=== PATIENT | male | born 1985 | race Caucasian/White ===

== ENCOUNTER 2024-03-03 03:29 | Emergency (ER) | payer OTHER, SELFPAY ==
[2024-03-03 03:35] VITALS: BP 128/86
--- NOTE | 2024-03-03 04:10 | ED.GENMED ---
History of Present Illness
General
Chief Complaint: Abdominal Pain
Time Seen by Provider: 03/03/24 04:10
History of Present Illness
History of Present Illness:
TIME OF INITIAL ENCOUNTER: 4:15 AM
HPI:
Approximately 48 hours ago, the patient started having abdominal discomfort more so on the left side. His pain is now diffuse. He has had similar less severe symptoms in the past but describes the symptoms tonight is rather significant. He has
associated weakness. He does not report any loss of appetite. He has had no nausea or vomiting or diarrhea.
EXAM:
GENERAL: Well appearing in no distress
HEENT: Moist oral mucosa
CARDIOVASCULAR: No murmurs, borderline tachycardic heart rate, regular rhythm, No chest wall tenderness
PULMONARY: No respiratory distress, breath sounds are clear and equal
ABDOMEN: Soft with no peritoneal signs, mild diffuse abdominal tenderness
NEUROLOGIC: Excellent strength all extremities, no coordination deficits
PSYCHIATRIC: Appropriate mental status, normal insight and judgement
EXTREMITIES: Nontender, no edema, moves all extremities equally
SKIN: No rash, no lesions
NUMBER AND COMPLEXITY OF PROBLEMS ADDRESSED AT THE ENCOUNTER
� Chronic conditions affecting care: Denies past medical history
� Acute Exacerbation and/or Progression of Chronic Illness: This is an acute problem
� Differential Diagnosis includes: Mesenteric adenitis, viral syndrome, diverticulitis, appendicitis, pancreatitis
AMOUNT AND/OR COMPLEXITY OF DATA TO BE REVIEWED AND ANALYZED
� I performed an independent evaluation of and my interpretation is:
EKG:
CT: CT imaging personally reviewed and I agree with radiologist interpretation that there is acute sigmoid diverticulitis with no evidence of complication
X-rays:
Laboratory Studies: White count 15.3, hemoglobin normal, chemistries unremarkable
Other:
� Review of other/old records: No old records available for review in [facility]
� Clinical information was obtained by an independent historian: I spoke to at bedside
� Prescriptions/Medications Considered but not given:
� Further testing considered but not performed:
RISK OF COMPLICATIONS AND/OR MORBIDITY OR MORTALITY OF PATIENT MANAGEMENT
� Social determinants of health affecting care: Lives at home
� Discussion with other providers:
� Escalation of care including admission/observation vs risk of discharge considered: Leukocytosis noted. The patient was given IV fluids as he was initially tachycardic. CT imaging obtained.
ANY OTHER UPDATES:
5:30 AM: I reassessed patient. CT imaging shows acute diverticulitis. However he is well-appearing with only minimal findings on exam. Will start antibiotics as outpatient and he is to follow-up with PMD and Jan him contact information for
Dr. Rojas
Phy Exam
Physical Exam
Physical Exam:
See HPI
Course
Orders/Labs/Results
Orders:
Orders
03/03/24 03:40
Complete Blood Count/With Diff Urgent
Comprehensive Metabolic Panel Urgent
Lipase Urgent
03/03/24 04:15
CT Abd/pelvis W Iv Cont Urgent
Comment:
Reason For Exam: diffuse abd pain
03/03/24 04:16
0.9% Sodium Chloride 1000 ml [Nss] 1,000 ml IV BOLUS
03/03/24 05:33
Amoxicillin 875 mg/Clav 125 mg [Augmentin 875 mg/125 mg] 1 tablet PO NOW STA
Abnormal Lab Results
03/03/24
03:40
WBC 15.3 H 10^3/uL
(4.8-10.8)
Abs Immat Gran (auto) 0.1 H 10^3/uL
(0-0.05)
Absolute Neuts (auto) 11.3 H 10^3/uL
(1.4-6.5)
Absolute Monos (auto) 1.7 H 10^3/uL
(0.1-0.6)
Lymphocytes % 13.6 L %
(20.5-51.1)
Monocytes % 11.0 H %
(1.7-9.3)
Glucose 121 H mg/dl
(70-99)
Total Bilirubin 1.9 H mg/dl
(0.2-1.3)
03/03/24 03:40
03/03/24 03:40
Vital Signs
Initial and Last Documented VS:
Initial Vital Signs
Temp Pulse BP Pulse Ox
36.9 C 129 128/86 96
03/03/24 03:35 03/03/24 03:35 03/03/24 03:35 03/03/24 03:35
Last Documented Vital Signs
Temp Pulse BP Pulse Ox
36.9 C 129 128/86 96
03/03/24 03:35 03/03/24 03:35 03/03/24 03:35 03/03/24 03:35
*Critical Care Note
Total Time (30-74mins, 75-104mins- exclusive of procedures): Not Applicable
ED Attending Note
-
Portions of this chart may have been created with voice recognition software.� Occasional wrong word or��sound alike� substitutions may have occurred due to the inherent limitations of voice recognition software.
Discharge Plan
Departure
Patient Disposition: Home (Routine Discharge)
Date of Disposition: 03/03/24
Time of Disposition: 05:33
Patient with high blood pressure during this ER visit?: Yes
Discharge Problem:
Diverticulitis
Instructions: Diverticulitis (DC), Abdominal Pain
Prescriptions:
New
amoxicillin-pot clavulanate 875-125 mg tablet
1 tab PO BID Qty: 14 0RF
Referrals:
Steve Livingston DO [Family Provider] -
Renee Pittman MD [Active] - Follow up in 10 days
Activity Restrictions/Additional Instructions:
I sent a prescription for Augmentin to your pharmacy. Return here if worse. I have given you the contact information for local GI doctor to follow-up with.
Interventions
Interventions:
*Neglect/Abuse Screening Last Done: 03/03/24 03:32
ED- Fall Risk Assessment Last Done: 03/03/24 04:45
*ED COVID-19 Vaccine History Last Done: 03/03/24 03:30
NS-Ckzdmu-Bjinohvuhb Assessment Last Done: 03/03/24 04:45
Discharge Date and Time
Print Language: KISWAHILI
[2024-03-03 04:27] LABS: % Basophils 0.3 % (0-2); % Eosinophils 0.3 % (0-6); % Immature Granulocytes 0.5 % (0-0.5); % Lymphocytes 13.6 % (20.5-51.1); % Neutrophils 74.3 % (42.2-75.2); Absolute Basophils 0.1 10^3/uL (0-0.2); Absolute Immature Granulocytes 0.1 10^3/uL (0-0.05); Absolute Lymphocytes 2.1 10^3/uL (1.2-3.4); Absolute Monocytes 1.7 10^3/uL (0.1-0.6); Absolute Neutrophils 11.3 10^3/uL (1.4-6.5); Hemoglobin 14.3 g/dL (13.0-18.0); Mean Corp Hgb Conc. 34.9 g/dL (33.0-37.0); Mean Corpuscular Hgb 29.1 pg (27.0-31.0); Mean Corpuscular Volume 83.3 fL (80.0-94.0); Mean Platelet Volume 9.9 fL (7.4-10.4); Nucleated Red Blood Cells % 0 % (-); Platelet Count 253 10^3/uL (130-400); Red Blood Cell Count 4.92 10^6/uL (4.70-6.10); Red Cell Dist. Width 12.5 % (11.5-14.5); White Blood Cell Count 15.3 10^3/uL (4.8-10.8)
[2024-03-03] MEDS: NSS 1000 IV (04:28)
[2024-03-03 04:49] LABS: ALT (SGPT) 32 U/L (0-50); AST (SGOT) 24 U/L (17-59); Alkaline Phosphatase 65 U/L (38-126); Blood Urea Nitrogen 14 mg/dl (9-20); Calcium 9.7 mg/dl (8.4-10.2); Carbon Dioxide 26 mmol/L (22-30); Chloride 98 mmol/L (98-107); Glucose 121 mg/dl (70-99); Lipase 91 U/L (23-300); Potassium 3.8 mmol/L (3.5-5.1); Sodium 137 mmol/L (135-145); Total Bilirubin 1.9 mg/dl (0.2-1.3); Total Protein 7.6 g/dl (6.3-8.2); eGFR > 60.00
[2024-03-03] MEDS: AUGMENTIN 875 MG/125 MG 1 TABLET PO (05:43)
[2024-03-03 05:54] VITALS: BP 119/69
== END 2024-03-03 05:56 | disposition home or self-care (01) ==
LOC: EMR 03:29
PROVIDERS: EMERGENCY PHYSICIAN Emergency Medicine; FAMILY PHYSICIAN Family Medicine
DX: K57.32 Diverticulitis of large intestine without perforation or abscess without bleeding (principal)
CPT/HCPCS: 99284; 96360; 74177; 80053; 83690; 85025; Q9967

== ENCOUNTER 2024-08-26 21:28 | Emergency (ER) | payer OTHER, SELFPAY ==
[2024-08-26 21:35] VITALS: BP 129/82
[2024-08-26 22:14] LABS: COVID-19 Antigen Negative (Negative)
[2024-08-27 00:07] LABS: % Basophils 0.4 % (0-2); % Eosinophils 0.4 % (0-6); % Immature Granulocytes 0.1 % (0-0.5); % Lymphocytes 10.8 % (20.5-51.1); % Monocytes 8.6 % (1.7-9.3); % Neutrophils 79.7 % (42.2-75.2); Absolute Lymphocytes 0.9 10^3/uL (1.2-3.4); Absolute Monocytes 0.7 10^3/uL (0.1-0.6); Absolute Neutrophils 6.7 10^3/uL (1.4-6.5); Hematocrit 36.7 % (39.0-52.0); Mean Corp Hgb Conc. 35.4 g/dL (33.0-37.0); Mean Corpuscular Volume 81.7 fL (80.0-94.0); Mean Platelet Volume 9.5 fL (7.4-10.4); Nucleated Red Blood Cells % 0 % (-); Platelet Count 223 10^3/uL (130-400); Red Blood Cell Count 4.49 10^6/uL (4.70-6.10); Red Cell Dist. Width 12.1 % (11.5-14.5); White Blood Cell Count 8.5 10^3/uL (4.8-10.8)
[2024-08-27 00:21] LABS: ALT (SGPT) 32 U/L (0-50); AST (SGOT) 26 U/L (17-59); Albumin 4.5 g/dl (3.5-5.0); Alkaline Phosphatase 65 U/L (38-126); Blood Urea Nitrogen 10 mg/dl (9-20); Calcium 9.2 mg/dl (8.4-10.2); Carbon Dioxide 25 mmol/L (22-30); Chloride 103 mmol/L (98-107); Glucose 121 mg/dl (70-99); Potassium 3.9 mmol/L (3.5-5.1); Sodium 137 mmol/L (135-145); Total Bilirubin 0.9 mg/dl (0.2-1.3); Total Protein 7.1 g/dl (6.3-8.2); eGFR > 60.00
[2024-08-27] MEDS: NSS 1000 IV (01:18)
[2024-08-27] MEDS: TORADOL 15 MG IV (01:19)
[2024-08-27 02:04] VITALS: BP 122/76
[2024-08-27] MEDS: TYLENOL 1000 MG PO (02:05)
[2024-08-27 02:29] LABS: Monotest Positive (Negative)
[2024-08-27 03:33] VITALS: BP 99/70
--- NOTE | 2024-08-27 07:30 | ED.GENMED ---
History of Present Illness
General
Chief Complaint: Headache
Source: patient
Exam Limitations: none
Time Seen by Provider: 08/27/24 01:28
Nursing documentation reviewed up to this point in time: agreed with
History of Present Illness
History of Present Illness:
39-year-old male with no reported chronic medical issues presents for evaluation of multiple complaints. Patient reports that he has been feeling unwell for the past few days. He says he has had fever with a Tmax of 102 �F. He says he is been
having headache, myalgias. He says he has been having sore throat, congestion. Mild cough. No nausea, vomiting, diarrhea. No chest pain or abdominal pain. No shortness of breath. He has had a rash that she describes as red splotches on the
back, hands. He has a red spot on his toes�triage note mentions swelling and joint pain in the toes but actually he just has one of these red spots on the toe. The rash is not pruritic or painful. No oral ulcerations. No known sick contacts. No
recent travel. No known bug bites/tick bites.
Review of Systems
Review of Systems
All Other Systems: ROS reviewed and negative except as documented in HPI and ROS
Constitutional: Reports fever, fatigue and chills
EENT: Reports sore throat and runny nose
Respiratory: Reports cough; Denies trouble breathing
Cardiac: Denies chest pain
ABD/GI: Denies abdominal pain, nausea, vomiting or diarrhea
: Denies flank pain
Musculoskeletal: Reports muscle pain; Denies back pain
Neurological: Reports headache
Phy Exam
Physical Exam
Physical Exam:
General: Awake, alert, oriented x3; no acute distress
Head: Normocephalic, atraumatic
Eyes: Conjunctiva normal, sclera anicteric
Throat: Airway intact, he does have erythema of the oropharynx but no tonsillar enlargement or exudate
Neck: Trachea midline, supple without meningismus
Lungs: Clear to auscultation bilaterally, no wheezing, rales, rhonchi
Heart: Tachycardia with regular rhythm, no murmurs, gallops, or rubs
Abd: Soft, non distended, nontender
Neuro: No gross deficits
Skin: Patient has a few small erythematous macules not raised, not blanching, no excoriation�noted on the back, arms, larger spot on the dorsum of the right foot extending to the 3rd and 4th toe
Extremities: No joint swelling, no pain on range of motion of the large joints of the upper or lower extremities�with attention to his toes he has no swelling of the joints in the toes and moves all the toes comfortably without pain including in the
right foot in the area of concern for rash; no edema in extremities, equal pulses in all extremities
Scores
Heart Failure Risk
Heart Failure Risk Score: Not Applicable
Heart Score for Chest Pain Patients
STEMI patient?: Not applicable
Withdrawal Assessment of Alcohol
Withdrawal Assessment Completed?: Not applicable
Sepsis
Sepsis Screening
Sepsis Assessment: Sepsis Ruled Out
Sepsis Screen
Sepsis Screen: Sepsis Ruled Out
Date: 08/27/24
Time: 07:53
Course
Orders/Labs/Results
Orders:
Orders
08/26/24 21:48
COVID-19 Antigen Urgent
Source: Nasal Swab
Monotest Urgent
Comment: ADD ON
Influenza A+B Rapid Molecular Urgent
DIANE Source: Nasal Swab
Specimen Description:
08/26/24 23:59
Complete Blood Count/With Diff Urgent
Comprehensive Metabolic Panel Urgent
08/27/24 00:00
Add On- LAB Urgent
Tests Added?: lyme
08/27/24 01:15
Ketorolac [Toradol] 15 mg .ROUTE .STK-MED ONE
08/27/24 01:18
0.9% Sodium Chloride 1000 ml [Nss] 1,000 ml IV BOLUS
08/27/24 01:19
Ketorolac [Toradol] 15 mg IV NOW STA
08/27/24 01:56
Acetaminophen [Tylenol] 1,000 mg PO NOW STA
08/27/24 01:57
CT Head W/o Iv Contrast Urgent
Comment:
Reason For Exam: worsening headache
08/27/24 02:02
Tho La Spotted Fever IgG&IgM [S] Urgent
Babesia Smear [Blood Parasites] Urgent
DIANE Source: Blood/Venous
Specimen Description:
08/27/24 23:59
Lyme Progressive Urgent
Comment: ADD ON
Abnormal Lab Results
08/26/24 08/26/24
21:48 23:59
RBC 4.49 L 10^6/uL
(4.70-6.10)
Hct 36.7 L %
(39.0-52.0)
Absolute Neuts (auto) 6.7 H 10^3/uL
(1.4-6.5)
Absolute Lymphs (auto) 0.9 L 10^3/uL
(1.2-3.4)
Absolute Monos (auto) 0.7 H 10^3/uL
(0.1-0.6)
Neutrophils % 79.7 H %
(42.2-75.2)
Lymphocytes % 10.8 L %
(20.5-51.1)
Glucose 121 H mg/dl
(70-99)
Monoscreen Positive A
(Negative)
08/26/24 23:59
08/26/24 23:59
Vital Signs
Initial and Last Documented VS:
Initial Vital Signs
Temp Pulse Resp BP Pulse Ox
37.9 C 121 18 129/82 97
08/26/24 21:35 08/26/24 21:35 08/26/24 21:35 08/26/24 21:35 08/26/24 21:35
Last Documented Vital Signs
Temp Pulse Resp BP Pulse Ox
37.9 C 102 20 99/70 97
08/26/24 21:35 08/27/24 03:33 08/27/24 03:33 08/27/24 03:33 08/27/24 07:35
MDM/Problems Addressed
Differential Diagnosis Includes:
Viral syndrome, Lyme's; although he does report fever and headache he has no meningeal signs, low clinical suspicion for meningitis
MDM/Problems Addressed:
39-year-old male presents for evaluation of multiple complaints as described above have been ongoing for the past few days. Vitals and exam as above. Send off labs including a CBC and a CMP, viral swabs, mono, Lyme's. Check CT head as he is most
concerned about his headache. Treat symptomatically. Reassess after the above.
After fluids, Toradol, Tylenol, patient reports improvement. He is positive for mono today. Rest of his labs show no significant abnormalities. CT head negative for any acute pathology. Stable for discharge. Spoke about contact precautions,
splenic precautions, follow-up plan. All questions answered.
*Radiology
Radiology exam reviewed: radiology read reviewed
*Pulse Oximetry
SaO2: 97
Oxygen Mode of Delivery: Room air
Patient hypoxic: no (97%)
*Critical Care Note
Total Time (30-74mins, 75-104mins- exclusive of procedures): Not Applicable
Data Reviewed
Source: patient
ED Attending Note
-
Portions of this chart may have been created with voice recognition software.� Occasional wrong word or��sound alike� substitutions may have occurred due to the inherent limitations of voice recognition software.
Discharge Plan
Departure
Patient Disposition: Home (Routine Discharge)
Date of Disposition: 08/27/24
Time of Disposition: 03:23
Patient with high blood pressure during this ER visit?: No
Discharge Problem:
Mononucleosis
Instructions: Mononucleosis
Prescriptions:
No Action
amoxicillin-pot clavulanate 875-125 mg tablet
1 tab PO BID Qty: 14 0RF
Referrals:
Tiffany Hill PA-C [Family Provider, Family Practice] - Follow up in 1 week
Activity Restrictions/Additional Instructions:
Thank you for visiting the Emergency Department at [facility].
1. Please schedule a follow up appointment as directed. Call first thing tomorrow morning to make an appointment.
2. If indicated, please take your medications as instructed and indicated on discharge paperwork.
3. If any of your symptoms do not improve, or persist, or become more severe within 6-12 hours, please return to the emergency department for further care.
4. Please return to the emergency department if you develop a headache, neck pain/stiffness, fever greater than 100.4F, chest pain, shortness of breath, persistent nausea, vomiting, slurred speech, difficulty walking, numbness/tingling, weakness,
signs of infection or any other symptoms that are worrisome to you.
Please call [phone] if you have any questions.
Interventions
Interventions:
*Risk Screen - Suicide Last Done: 08/26/24 21:35
*General Assessment Last Done: 08/27/24 02:06
*Neglect/Abuse Screening Last Done: 08/26/24 21:35
*ED- Fall Risk Assessment Last Done: 08/27/24 02:06
*ED COVID-19 Vaccine History Last Done: 08/27/24 02:06
*Nursing Disposition Last Done: 08/27/24 03:33
ED- Neurological Assessment Last Done: 08/27/24 00:02
Discharge Date and Time
Discharge Date/Time: 08/27/24 03:35
Print Language: TELUGU
[2024-08-27 14:02] LABS: Lyme Antibody Screen, EIA Presump. Positive (Negative)
== END 2024-08-27 03:35 | disposition home or self-care (01) ==
LOC: EMR 21:28
PROVIDERS: Emergency Medicine; EMERGENCY PHYSICIAN Emergency Medicine; FAMILY PHYSICIAN Family Medicine
DX: B27.90 Infectious mononucleosis, unspecified without complication (principal); Z11.52 Encounter for screening for COVID-19
CPT/HCPCS: 99283; 70450; 80053; 85025; 86308; 86617; 86618; 86757; 87015; 87207; 87502; 87811